=== PATIENT | female | born 1970 | race Caucasian/White ===

== ENCOUNTER 2018-03-07 09:41 | Emergency (ER) | payer MEDICAID ==
[~2018-03-07] VITALS: Ht 157.5 cm; Wt 105.5 kg
[~2018-03-07 09:41] MED LIST: ALPR-623 PO; DOCU100C40 PO; HYDR-3965 PO; PANT-47 PO
[2018-03-07 09:44] VITALS: BP 147/102
[2018-03-07] MEDS ORDERED: HYDR-565 PO (10:59)
[2018-03-07] MEDS ORDERED: SULF1TAB49 PO (10:59)
[2018-03-07] MEDS ORDERED: CEPH500C5 PO (10:59)
== END 2018-03-07 11:25 | disposition home or self-care (01) ==
LOC: ER 09:42
DX: L02.214 Cutaneous abscess of groin (principal); Z79.899 Other long term (current) drug therapy; Z56.0 Unemployment, unspecified
CPT/HCPCS: 99283

== ENCOUNTER 2020-04-06 12:44 | Emergency (ER) | payer MEDICAID ==
[~2020-04-06] VITALS: Ht 157.5 cm; Wt 90.0 kg
[2020-04-06] MEDS ORDERED: ketorolac tromethamine 15mg/ml inj. IV ONE (13:00)
[2020-04-06] MEDS ORDERED: normal saline 1000ML IV soln IVB ONE (13:00)
[2020-04-06] MEDS ORDERED: ondansetron/PF 4mg/2ml inj IV ONE (13:25)
[2020-04-06 13:39] LABS: BASOPHILS # (AUTO) 0.1 X10'3 (0-0.2); BASOPHILS % (AUTO) 0.4 % (0-1); EOSINOPHILS % (AUTO) 0.3 % (0-6); LYMPHOCYTES # (AUTO) 1.9 X10'3 (1.1-4.8); LYMPHOCYTES % (AUTO) 12.3 % (21-51); MEAN CORPUSCULAR HEMOGLOBIN 29.5 PG (27.0-31.0); MEAN CORPUSCULAR VOLUME 86.8 FL (78-98); MEAN PLATELET VOLUME 8.2 FL (7.4-10.4); MONOCYTES # (AUTO) 0.7 X10'3 (0-0.9); MONOCYTES % (AUTO) 4.3 % (2-12); NEUTROPHILS # (AUTO) 12.6 X10'3 (1.8-7.7); NEUTROPHILS % (AUTO) 82.7 % (42-75); PLATELET COUNT 306 X10'3 (140-440); RED BLOOD COUNT 5.42 X10'6 (4.20-5.60); RED CELL DISTRIBUTION WIDTH 13.2 % (11.5-14.5); WHITE BLOOD COUNT 15.3 X10'3 (4.5-11.0)
[2020-04-06 13:56] LABS: ALANINE AMINOTRANSFERASE 48 U/L (12-78); ALBUMIN 3.9 G/DL (3.4-5.0); ALBUMIN/GLOBULIN RATIO 0.9 (1.1-1.5); ALKALINE PHOSPHATASE 130 IU/L (46-116); ANION GAP 13 (8-16); ASPARTATE AMINO TRANSFERASE 34 U/L (10-37); BILIRUBIN,TOTAL 0.6 MG/DL (0.1-1.0); BLOOD UREA NITROGEN 10 MG/DL (7-18); BUN/CREATININE RATIO 8.5 (6.6-38.0); CALCIUM 9.5 MG/DL (8.5-10.1); CHLORIDE 106 MMOL/L (99-107); CREATININE 1.17 MG/DL (0.40-0.90); GLUCOSE 253 MG/DL (70-104); LIPASE 101 U/L (73-393); POTASSIUM 4.3 MMOL/L (3.5-5.1); SODIUM 140 MMOL/L (135-145); TOTAL CARBON DIOXIDE 21.2 MMOL/L (24-32); TOTAL PROTEIN 8.4 G/DL (6.4-8.2); eGFR 49 ML/MIN
[2020-04-06 14:45] LABS: CLARITY,URINE CLOUDY (Clear); COLOR,URINE YELLOW (Yellow); GLUCOSE, URINE NEGATIVE (Neg); KETONES,URINE 40 mg/dl (Neg); LEUKOCYTE ESTERASE ,URINE NEGATIVE (Neg); NITRITES, URINE NEGATIVE (Neg); OCCULT BLOOD,URINE LARGE (Neg); PROTEIN,URINE TRACE mg/dl (Neg); UROBILINOGEN,URINE 0.2 E.U/dL (0.2-1.0)
[2020-04-06 14:46] LABS: UA COLLECTION TYPE CLN CATCH MIDSTREAM
[2020-04-06 15:14] LABS: SQUAMOUS EPITHELIAL CELL,UR MODERATE /LPF (FEW)
[2020-04-06 15:15] LABS: BACTERIA,URINE 1+ /HPF (Neg); MUCUS STRANDS MODERATE /LPF (Neg); RBC,URINE TNTC /HPF (0-2)
[2020-04-06 15:16] LABS: WBC,URINE 0-4 /HPF (0-4)
[2020-04-06] MEDS ORDERED: FLO0.4C PO (15:27)
[2020-04-06] MEDS ORDERED: IBUP-1985 PO (15:27)
[2020-04-06] MEDS ORDERED: ONDA4TAB6 PO (15:27)
[2020-04-06] MEDS ORDERED: HYDR-3965 PO (15:27)
[2020-04-06 16:47] VITALS: BP 140/86
== END 2020-04-06 16:48 | disposition home or self-care (01) ==
LOC: ER 12:45
DX: N20.0 Calculus of kidney (principal); R11.2 Nausea with vomiting, unspecified; R10.9 Unspecified abdominal pain; F41.9 Anxiety disorder, unspecified; F31.9 Bipolar disorder, unspecified; Z79.899 Other long term (current) drug therapy; Z56.0 Unemployment, unspecified
CPT/HCPCS: 36415; 74176; 80053; 81001; 82948; 83690; 84484; 85025; 93005; 96374; 96375; 99285; J1885; J2405; J7030

== ENCOUNTER 2021-02-01 17:48 | Emergency (ER) | payer MEDICAID ==
[~2021-02-01] VITALS: Ht 160 cm; Wt 54.5 kg
[~2021-02-01 17:48] MED LIST changes: +IBUP-1985 PO; +ONDA4TAB6 PO
[2021-02-01 18:46] LABS: BASOPHILS % (AUTO) 0.3 % (0-1); EOSINOPHILS % (AUTO) 0.3 % (0-6); HEMATOCRIT 42.3 % (35.0-45.0); LYMPHOCYTES # (AUTO) 2.1 X10'3 (1.1-4.8); MEAN CORPUSCULAR HEMOGLOBIN 28.8 PG (27.0-31.0); MEAN CORPUSCULAR HGB CONC 33.2 g/dL (33.0-36.5); MEAN CORPUSCULAR VOLUME 86.8 FL (78-98); MEAN PLATELET VOLUME 8.5 FL (7.4-10.4); MONOCYTES # (AUTO) 0.5 X10'3 (0-0.9); MONOCYTES % (AUTO) 4.7 % (2-12); NEUTROPHILS # (AUTO) 8.9 X10'3 (1.8-7.7); NEUTROPHILS % (AUTO) 76.7 % (42-75); PLATELET COUNT 296 X10'3 (140-440); RED BLOOD COUNT 4.87 X10'6 (4.20-5.60); RED CELL DISTRIBUTION WIDTH 13.2 % (11.5-14.5); WHITE BLOOD COUNT 11.5 X10'3 (4.5-11.0)
[2021-02-01 18:55] LABS: ALANINE AMINOTRANSFERASE 25 U/L (12-78); ALBUMIN 3.6 G/DL (3.4-5.0); ALBUMIN/GLOBULIN RATIO 0.8 (1.1-1.5); ALKALINE PHOSPHATASE 116 IU/L (46-116); ANION GAP 13 (8-16); ASPARTATE AMINO TRANSFERASE 20 U/L (10-37); BILIRUBIN,TOTAL 0.4 MG/DL (0.1-1.0); BLOOD UREA NITROGEN 10 MG/DL (7-18); BUN/CREATININE RATIO 12.7 (6.6-38.0); CALCIUM 9.4 MG/DL (8.5-10.1); CHLORIDE 106 MMOL/L (99-107); CREATININE 0.79 MG/DL (0.40-0.90); GLUCOSE 108 MG/DL (70-104); POTASSIUM 3.8 MMOL/L (3.5-5.1); SODIUM 142 MMOL/L (135-145); TOTAL CARBON DIOXIDE 23.1 MMOL/L (24-32); TOTAL PROTEIN 8.2 G/DL (6.4-8.2); eGFR 76 ML/MIN
--- NOTE | 2021-02-01 19:09 | NUR ---
report received from amina Martinez. assumed care. pt resting in bed. denies needs
[2021-02-01] MEDS ORDERED: meclizine 12.5mg tablet PO ONE (19:30)
[2021-02-01] MEDS ORDERED: MECL-231 PO (19:33)
[2021-02-01 19:47] VITALS: BP 138/85
== END 2021-02-01 19:48 | disposition home or self-care (01) ==
LOC: ER 17:48
DX: R42 Dizziness and giddiness (principal); R11.0 Nausea; F41.9 Anxiety disorder, unspecified; F31.9 Bipolar disorder, unspecified; Z87.442 Personal history of urinary calculi; Z98.890 Other specified postprocedural states; Z56.0 Unemployment, unspecified; Z79.899 Other long term (current) drug therapy
CPT/HCPCS: 36415; 80053; 82948; 84484; 85025; 93005; 99284; J8597

== ENCOUNTER 2024-12-08 06:41 | Emergency (ER) | payer MEDICAID ==
[~2024-12-08] VITALS: Ht 157.5 cm; Wt 90.0 kg
[~2024-12-08 06:41] MED LIST changes: +MECL-231 PO
[2024-12-08 07:18] LABS: BASOPHILS % (AUTO) 0.3 % (0-1); EOSINOPHILS % (AUTO) 0.2 % (0-6); HEMOGLOBIN 13.6 g/dl (12.0-16.0); LYMPHOCYTES # (AUTO) 1.8 X10'3 (1.1-4.8); LYMPHOCYTES % (AUTO) 10.1 % (21-51); MEAN CORPUSCULAR HGB CONC 33.1 g/dL (33.0-36.5); MEAN CORPUSCULAR VOLUME 84.7 FL (78-98); MEAN PLATELET VOLUME 8.7 FL (7.4-10.4); MONOCYTES % (AUTO) 5.6 % (2-12); NEUTROPHILS # (AUTO) 14.5 X10'3 (1.8-7.7); NEUTROPHILS % (AUTO) 83.8 % (42-75); PLATELET COUNT 235 X10'3 (140-440); RED BLOOD COUNT 4.84 X10'6 (4.20-5.60); RED CELL DISTRIBUTION WIDTH 13.5 % (11.5-14.5); WHITE BLOOD COUNT 17.3 X10'3 (4.5-11.0)
[2024-12-08] MEDS: ketorolac trometh 15mg/ml vial 15 MG/ML ML IV ONE (07:27)
[2024-12-08] MEDS: ondansetron/PF 4mg/2ml inj IV ONE (07:27)
[2024-12-08] MEDS: ringers solution, lacted 1,000 ML IV ONE (07:27)
[2024-12-08] MEDS: morphine 4 MG/ML inj SYRINge IV ONE (07:30)
[2024-12-08 08:05] LABS: ALANINE AMINOTRANSFERASE 27 U/L (12-78); ALBUMIN 3.6 G/DL (3.4-5.0); ALBUMIN/GLOBULIN RATIO 0.9 (1.1-1.5); ALKALINE PHOSPHATASE 121 IU/L (46-116); ANION GAP 16 (8-16); ASPARTATE AMINO TRANSFERASE 23 U/L (10-37); BILIRUBIN,TOTAL 0.4 MG/DL (0.1-1.0); BLOOD UREA NITROGEN 16 MG/DL (7-18); BUN/CREATININE RATIO 14.7 (10.0-20.0); CALCIUM 8.9 MG/DL (8.5-10.1); CHLORIDE 106 MMOL/L (99-107); CREATININE 1.09 MG/DL (0.40-0.90); GLUCOSE 175 MG/DL (70-104); LIPASE 30 U/L (16-77); SODIUM 142 MMOL/L (135-145); TOTAL CARBON DIOXIDE 20.4 MMOL/L (24-32); TOTAL PROTEIN 7.8 G/DL (6.4-8.2); eCRCL 46 ML/MIN; eGFR 52 ML/MIN
[2024-12-08 09:17] LABS: BILIRUBIN,URINE NEGATIVE (Neg); CLARITY,URINE SLIGHTLY CLOUDY (Clear); COLOR,URINE YELLOW (Yellow); GLUCOSE, URINE NEGATIVE (Neg); KETONES,URINE TRACE mg/dl (Neg); LEUKOCYTE ESTERASE ,URINE NEGATIVE (Neg); NITRITES, URINE NEGATIVE (Neg); OCCULT BLOOD,URINE LARGE (Neg); PROTEIN,URINE TRACE mg/dl (Neg); UROBILINOGEN,URINE 0.2 E.U/dL (0.2-1.0)
[2024-12-08 09:19] LABS: URINE HCG NEGATIVE (NEG)
[2024-12-08 09:24] LABS: BACTERIA,URINE 1+ /HPF (Neg); RBC,URINE 50-100 /HPF (0-2); SQUAMOUS EPITHELIAL CELL,UR FEW /LPF (FEW); UA COLLECTION TYPE NON-SPECIFIED; WBC,URINE 0-4 /HPF (0-4)
[2024-12-08 09:25] LABS: RENAL CELLS, URINE FEW /HPF; TRANSITIONAL EPI CELLS,URINE FEW /HPF
[2024-12-08] MEDS ORDERED: MORP15TA PO (09:36)
[2024-12-08] MEDS ORDERED: ONDA-243 PO (09:36)
[2024-12-08] MEDS ORDERED: FLO0.4C PO (09:36)
[2024-12-08 09:50] VITALS: BP 117/72; PULSE 75; RESP 16; TEMP 98.3; O2SAT 96
[2024-12-08] MEDS: hydrOXYzine 25 MG tablet PO ONE (10:02)
== END 2024-12-08 10:45 | disposition home or self-care (01) ==
LOC: ER 06:42
DX: F41.9 Anxiety disorder, unspecified (principal); N20.0 Calculus of kidney; F32.A Depression, unspecified; Z87.442 Personal history of urinary calculi; Z79.899 Other long term (current) drug therapy; Z56.0 Unemployment, unspecified
CPT/HCPCS: 36415; 80053; 81001; 81025; 83690; 85025; 96361; 96374; 96375; 99285; J1885; J2270; J2405; J7120; Q0177